=== PATIENT | female | born 1955 | race Caucasian/White ===

== ENCOUNTER 2018-07-10 11:35 | Outpatient (CLI) | payer MEDICARE, MEDICAID ==
--- NOTE | 2018-07-10 13:28 | CT ---
CT BRAIN NONCONTRAST: DATE: 07/10/2018 TIME: 12:08 p.m. HISTORY: A 62-year-old female with both Alzheimer disease and Down syndrome, who presents with change, altered mental status. FINDINGS: There is no midline shift or any other mass effect. There is no evidence of acute intracranial hemor rhage, large cortical infarct, or extraaxial fluid collection. The calvarium is intact. There is di ffuse parenchymal volume loss. There are low attenuation areas in the white matter. These are nonsp ecific, but in a patient of this age, they are probably chronic ischemic white matter changes due to microvascular atherosclerosis. There is moderate ventriculomegaly involving the lateral and third ve ntricles. This is probably on an ex vacuo basis due to diffuse brain parenchymal volume loss. IMPRESSION: 1) No acute intracranial findings. 2) Involutional changes and chronic ischemic white matter changes. lora POS: TY
--- NOTE | 2018-07-10 13:49 | CT ---
CT LUMBAR SPINE: History: Lumbar radiculopathy, low back pain since March. No trauma. Technique: Axial images are obtained with coronal and sagittal reconstructions. FINDINGS: Images demonstrate abnormal thickening of the urinary bladder. Numerous colonic diverticula are present. T12-L1: Unremarkable. L1-2: Minimal facet hypertrophy seen. The central canal and neural foramen are patent. L2-3: Minimal facet hypertrophy seen. The central canal and neural foramen are patent. L3-4: There is mild disc desiccation. There is a mild broad based disc bulge with mild facet and liga mentum flavum hypertrophy resulting in mild to moderate central and lateral recess stenosis. The cent ral canal is patent. L4-5: Disc desiccation is seen. There is a broad based disc bulge with bilateral facet and ligamentum flavum hypertrophy resulting in moderate to severe central and lateral recess stenosis. The neural f oramen are patent. L5-S1: There is bilateral facet hypertrophy seen. There is minimal anterolisthesis of L5 on S1 measur ing approximately 3 mm. The central canal is patent. The neural foramen are patent. IMPRESSION: Moderate degree of a central L4-5 spinal stenosis with lateral recess stenosis. POS: TY
== END 2018-07-10 11:36 | disposition home or self-care (01) ==
LOC: MADCT 11:35
PROVIDERS: ATTEND Family Medicine
DX: M54.16 Radiculopathy, lumbar region (principal); R41.0 Disorientation, unspecified; M48.061 Spinal stenosis, lumbar region without neurogenic claudication
CPT/HCPCS: 70450; 72131